=== PATIENT | male | born 1940 | race Caucasian/White ===

== ENCOUNTER 2016-05-16 19:18 | Inpatient (IN) | payer MEDICARE, BC ==
[~2016-05-16] VITALS: Ht 170.2 cm; Wt 113.1 kg
[2016-05-16] MEDS ORDERED: LIDOCAINE 1%-EPI 1:100K, 50ML ONE (20:28)
[2016-05-16] MEDS ORDERED: LIDOCAINE 1%-EPI 1:100K, 50ML INFIL ONE (20:30)
[2016-05-16 20:48] LABS: BLOOD UREA NITROGEN 22 mg/dL (7-18)
[2016-05-16] MEDS ORDERED: LIDOCAINE GEL 2%, 5ML ONE (21:09)
[2016-05-16] MEDS ORDERED: AZITHROMYCIN 500 MG in SODIUM CHLORIDE 0.9% 250 ML IV ONE (22:00)
[2016-05-16] MEDS ORDERED: SODIUM CHLORIDE 0.9% 1,000ML IVBOLUS ONE (22:00)
[2016-05-16] MEDS ORDERED: SODIUM CHLORIDE FLUSH 10ML SYR IVF ONE (22:00)
[2016-05-16] MEDS ORDERED: CEFTRIAXONE PMX 1GM/50ML 50 ML IV ONE (22:00)
[2016-05-16] MEDS ORDERED: DIPH,PERTUSS(ACELL),TET VAC/PF 0.5 ML IM-VACC ONE ×2 (22:09→22:30)
[2016-05-16] MEDS ORDERED: CEFTRIAXONE PMX 1GM/50ML 50 ML ONE (22:09)
[2016-05-16 23:30] VITALS: BP 156/92
[2016-05-17] MEDS ORDERED: SODIUM CHLORIDE 0.9% 1,000 ML IV SCH (01:07)
[2016-05-17] MEDS ORDERED: GLUCAGON 1 MG IM PRN (01:30)
[2016-05-17] MEDS ORDERED: LABETALOL 5MG/ML, 20ML IV PRN (01:30)
[2016-05-17] MEDS ORDERED: POLYETHYLENE GLYCOL 17 GM PACKET PO PRN (01:30)
[2016-05-17] MEDS ORDERED: ENOXAPARIN 40 MG/0.4 ML SQ SCH (01:30)
[2016-05-17] MEDS ORDERED: BISACODYL 10 MG SUPP PR PRN (01:30)
[2016-05-17] MEDS ORDERED: DEXTROSE 4 GM TAB.CHEW PO PRN (01:30)
[2016-05-17] MEDS ORDERED: PHARMACY MAY ADJ FOR RENAL FX MC PRN (01:30)
[2016-05-17] MEDS ORDERED: DEXTROSE 50%, 50ML SYRINGE IVPush PRN (01:30)
[2016-05-17] MEDS ORDERED: ENOXAPARIN 30 MG/0.3 ML SQ SCH (01:30)
[2016-05-17] MEDS ORDERED: DOCUSATE 100 MG CAPSULE PO PRN (01:30)
[2016-05-17] MEDS: DOXYCYCLINE 100 MG in DEXTROSE 5% 250 ML IV SCH ×2 (01:38→13:59)
[2016-05-17] MEDS: MORPHINE SULFATE 4 MG/ML, 1ML IVPush PRN ×3 (01:39→14:51)
[2016-05-17] MEDS: INSULIN DETEMIR 100 UNITS/ML, PEN SQ-INSULIN SCH ×2 (02:23→14:04)
[2016-05-17] MEDS ORDERED: DIPH,PERTUSS(ACELL),TET VAC/PF 0.5 ML IM-VACC ONE (02:30)
[2016-05-17 04:28] VITALS: BP 164/77
[2016-05-17 05:08] LABS: BLOOD UREA NITROGEN 23 mg/dL (7-18)
[2016-05-17 05:14] LABS: ASPARTATE AMINO TRANSFERASE 36 U/L (15-37)
[2016-05-17 05:34] VITALS: BP 155/96
[2016-05-17] MEDS: HYDROcodone/APAP 5/325 TABLET PO PRN ×3 (06:05→20:10)
[2016-05-17 07:59] VITALS: BP 149/90
[2016-05-17] MEDS: ALBUTEROL/IPRATROPIUM 2.5MG/0.5MG, 3 ML NPPB SCH ×2 (08:30→18:35)
[2016-05-17] MEDS: INSULIN ASPART 100 UNITS/ML, PEN SQ-INSULIN SCH ×4 (08:57→20:13)
[2016-05-17] MEDS: SENNA/DOCUSATE TABLET PO SCH (09:37)
[2016-05-17] MEDS: FLUTICASONE/VILANTEROL 100-25MCG/INH INH SCH (09:37)
[2016-05-17] MEDS: SODIUM CHLORIDE FLUSH 10ML SYR IVF SCH ×2 (09:38→20:04)
[2016-05-17 12:36] VITALS: BP 147/88
[2016-05-17] MEDS: ENOXAPARIN 30 MG/0.3 ML SQ SCH (14:11)
[2016-05-17 19:53] VITALS: BP 150/81
[2016-05-17] MEDS: CEFTRIAXONE PMX 1GM/50ML 50 ML IV SCH (20:04)
[2016-05-18] MEDS: ENOXAPARIN 30 MG/0.3 ML SQ SCH ×2 (00:15→13:35)
[2016-05-18] MEDS: HYDROcodone/APAP 5/325 TABLET PO PRN (01:02)
[2016-05-18] MEDS: ONDANSETRON 2MG/ML, 2ML IVP PRN ×2 (01:19→12:00)
[2016-05-18 02:53] VITALS: BP 143/78
[2016-05-18 04:49] LABS: BLOOD UREA NITROGEN 24 mg/dL (7-18)
[2016-05-18] MEDS: MORPHINE SULFATE 4 MG/ML, 1ML IVPush PRN (05:06)
[2016-05-18] MEDS: ALBUTEROL/IPRATROPIUM 2.5MG/0.5MG, 3 ML NPPB SCH ×2 (07:20→19:40)
[2016-05-18] MEDS: FLUTICASONE/VILANTEROL 100-25MCG/INH INH SCH (07:38)
[2016-05-18] MEDS: SENNA/DOCUSATE TABLET PO SCH (07:38)
[2016-05-18] MEDS: INSULIN ASPART 100 UNITS/ML, PEN SQ-INSULIN SCH ×4 (07:42→22:24)
[2016-05-18] MEDS: SODIUM CHLORIDE FLUSH 10ML SYR IVF SCH ×2 (09:00→22:27)
[2016-05-18] MEDS: DOXYCYCLINE 100 MG in DEXTROSE 5% 250 ML IV SCH (12:08)
[2016-05-18] MEDS: INSULIN DETEMIR 100 UNITS/ML, PEN SQ-INSULIN SCH ×2 (12:16→22:25)
[2016-05-18 14:00] VITALS: BP 159/92
[2016-05-18] MEDS ORDERED: RIVAROXABAN 15 MG TABLET PO SCH (17:00)
[2016-05-18 19:10] VITALS: BP 151/82
[2016-05-18] MEDS: CEFTRIAXONE PMX 1GM/50ML 50 ML IV SCH (22:24)
[2016-05-19] MEDS: DOXYCYCLINE 100 MG in DEXTROSE 5% 250 ML IV SCH ×3 (00:08→23:36)
[2016-05-19] MEDS ORDERED: ZIPRASIDONE 20 MG INJ IM ONE ×2 (01:00→20:00)
[2016-05-19 01:35] VITALS: BP 143/76
[2016-05-19 04:48] LABS: BLOOD UREA NITROGEN 21 mg/dL (7-18)
[2016-05-19] MEDS: ALBUTEROL/IPRATROPIUM 2.5MG/0.5MG, 3 ML NPPB SCH ×2 (06:50→18:59)
[2016-05-19 07:15] VITALS: BP 154/73
[2016-05-19] MEDS: FLUTICASONE/VILANTEROL 100-25MCG/INH INH SCH (09:00)
[2016-05-19] MEDS: INSULIN ASPART 100 UNITS/ML, PEN SQ-INSULIN SCH ×4 (09:11→21:13)
[2016-05-19] MEDS: SENNA/DOCUSATE TABLET PO SCH (09:11)
[2016-05-19] MEDS: RIVAROXABAN 15 MG TABLET PO SCH ×2 (09:11→17:00)
[2016-05-19] MEDS: SODIUM CHLORIDE FLUSH 10ML SYR IVF SCH ×2 (09:16→21:12)
[2016-05-19] MEDS: INSULIN DETEMIR 100 UNITS/ML, PEN SQ-INSULIN SCH ×2 (13:11→23:30)
[2016-05-19 13:40] VITALS: BP 158/94
[2016-05-19] MEDS: ACETAMINOPHEN 325 MG TABLET PO PRN (21:12)
[2016-05-19] MEDS: CEFTRIAXONE PMX 1GM/50ML 50 ML IV SCH (21:12)
[2016-05-19 21:15] VITALS: BP 169/97
[2016-05-20 01:47] VITALS: BP 169/87
[2016-05-20] MEDS ORDERED: ZIPRASIDONE 20 MG INJ IM ONE (03:30)
[2016-05-20 07:01] LABS: ASPARTATE AMINO TRANSFERASE 31 U/L (15-37); BLOOD UREA NITROGEN 21 mg/dL (7-18)
[2016-05-20] MEDS: INSULIN ASPART 100 UNITS/ML, PEN SQ-INSULIN SCH ×4 (09:09→20:46)
[2016-05-20] MEDS: SENNA/DOCUSATE TABLET PO SCH (09:10)
[2016-05-20] MEDS: FLUTICASONE/VILANTEROL 100-25MCG/INH INH SCH (09:10)
[2016-05-20] MEDS: SODIUM CHLORIDE FLUSH 10ML SYR IVF SCH ×2 (09:10→20:46)
[2016-05-20] MEDS: RIVAROXABAN 15 MG TABLET PO SCH ×2 (09:10→16:14)
[2016-05-20 09:20] VITALS: BP 150/77
[2016-05-20] MEDS: ALBUTEROL/IPRATROPIUM 2.5MG/0.5MG, 3 ML NPPB SCH ×2 (11:26→19:16)
[2016-05-20] MEDS: DOXYCYCLINE 100 MG in DEXTROSE 5% 250 ML IV SCH ×2 (11:30→22:44)
[2016-05-20] MEDS: INSULIN DETEMIR 100 UNITS/ML, PEN SQ-INSULIN SCH ×2 (11:31→22:46)
[2016-05-20 12:58] VITALS: BP 159/102
[2016-05-20] MEDS ORDERED: OMNIPAQUE 350 MG/ML, 100ML BOTTLE ONE (13:56)
[2016-05-20] MEDS: POTASSIUM CHLORIDE 20 MEQ TAB.ER.PRT PO SCH (17:14)
[2016-05-20] MEDS: FUROSEMIDE 40 MG/4 ML IV SCH (17:14)
[2016-05-20 19:07] VITALS: BP 151/94
[2016-05-20] MEDS: CEFTRIAXONE PMX 1GM/50ML 50 ML IV SCH (20:45)
[2016-05-20] MEDS: ACETAMINOPHEN 325 MG TABLET PO PRN (20:45)
[2016-05-20] MEDS ORDERED: DIPHENHYDRAMINE 50 MG CAPSULE PO ONE (22:00)
[2016-05-21 01:17] VITALS: BP 138/78
[2016-05-21] MEDS: ZIPRASIDONE 20 MG INJ IM PRN ×2 (01:59→12:11)
[2016-05-21 06:50] VITALS: BP 158/95
[2016-05-21] MEDS: POTASSIUM CHLORIDE 20 MEQ TAB.ER.PRT PO SCH (07:31)
[2016-05-21] MEDS: SENNA/DOCUSATE TABLET PO SCH (07:31)
[2016-05-21] MEDS: INSULIN ASPART 100 UNITS/ML, PEN SQ-INSULIN SCH ×4 (07:31→21:24)
[2016-05-21] MEDS: RIVAROXABAN 15 MG TABLET PO SCH ×2 (07:31→16:25)
[2016-05-21] MEDS: FUROSEMIDE 40 MG/4 ML IV SCH (07:32)
[2016-05-21] MEDS: FLUTICASONE/VILANTEROL 100-25MCG/INH INH SCH (07:32)
[2016-05-21] MEDS: SODIUM CHLORIDE FLUSH 10ML SYR IVF SCH ×2 (07:32→21:24)
[2016-05-21] MEDS: ALBUTEROL/IPRATROPIUM 2.5MG/0.5MG, 3 ML NPPB SCH ×2 (09:18→22:17)
[2016-05-21] MEDS: DOXYCYCLINE 100 MG in DEXTROSE 5% 250 ML IV SCH ×2 (11:33→23:59)
[2016-05-21] MEDS: INSULIN DETEMIR 100 UNITS/ML, PEN SQ-INSULIN SCH (11:37)
[2016-05-21 14:15] VITALS: BP 134/80
[2016-05-21 17:42] VITALS: BP 100/61
[2016-05-21 18:43] VITALS: BP 150/86
[2016-05-21] MEDS: CEFTRIAXONE PMX 1GM/50ML 50 ML IV SCH (21:24)
[2016-05-22 03:30] VITALS: BP 130/92
[2016-05-22 04:44] LABS: BLOOD UREA NITROGEN 24 mg/dL (7-18)
[2016-05-22 06:54] VITALS: BP 162/101
[2016-05-22] MEDS ORDERED: SODIUM CHLORIDE 0.9% 1,000 ML IV SCH (07:00)
[2016-05-22] MEDS: POTASSIUM CHLORIDE 20 MEQ TAB.ER.PRT PO SCH (08:19)
[2016-05-22] MEDS: SENNA/DOCUSATE TABLET PO SCH (08:19)
[2016-05-22] MEDS: FUROSEMIDE 40 MG/4 ML IV SCH (08:19)
[2016-05-22] MEDS: FLUTICASONE/VILANTEROL 100-25MCG/INH INH SCH (08:19)
[2016-05-22] MEDS: RIVAROXABAN 15 MG TABLET PO SCH ×2 (08:19→17:00)
[2016-05-22] MEDS: INSULIN ASPART 100 UNITS/ML, PEN SQ-INSULIN SCH ×4 (08:22→22:14)
[2016-05-22] MEDS: SODIUM CHLORIDE FLUSH 10ML SYR IVF SCH ×2 (08:27→22:14)
[2016-05-22] MEDS: ALBUTEROL/IPRATROPIUM 2.5MG/0.5MG, 3 ML NPPB SCH ×2 (09:40→21:48)
[2016-05-22 10:14] VITALS: BP 159/97
[2016-05-22] MEDS: INSULIN DETEMIR 100 UNITS/ML, PEN SQ-INSULIN SCH ×2 (11:28)
[2016-05-22] MEDS: DOXYCYCLINE 100 MG in DEXTROSE 5% 250 ML IV SCH (12:26)
[2016-05-22 12:37] VITALS: BP 122/78
[2016-05-22] MEDS: ZIPRASIDONE 20 MG INJ IM PRN (16:12)
[2016-05-22] MEDS: CEFTRIAXONE PMX 1GM/50ML 50 ML IV SCH (22:14)
[2016-05-23] MEDS: CEFTRIAXONE PMX 1GM/50ML 50 ML IV SCH ×2 (00:30→22:15)
[2016-05-23] MEDS: INSULIN DETEMIR 100 UNITS/ML, PEN SQ-INSULIN SCH ×3 (00:31→23:30)
[2016-05-23] MEDS: DOXYCYCLINE 100 MG in DEXTROSE 5% 250 ML IV SCH ×4 (01:04→23:35)
[2016-05-23 02:29] VITALS: BP 137/95
[2016-05-23 04:35] LABS: BLOOD UREA NITROGEN 27 mg/dL (7-18)
[2016-05-23] MEDS ORDERED: SODIUM CHLORIDE 0.9% 1,000 ML IV SCH (07:00)
[2016-05-23 07:11] VITALS: BP 138/82
[2016-05-23] MEDS: INSULIN ASPART 100 UNITS/ML, PEN SQ-INSULIN SCH ×4 (08:32→22:15)
[2016-05-23] MEDS: SENNA/DOCUSATE TABLET PO SCH (08:35)
[2016-05-23] MEDS: FLUTICASONE/VILANTEROL 100-25MCG/INH INH SCH (08:35)
[2016-05-23] MEDS: RIVAROXABAN 15 MG TABLET PO SCH ×2 (08:35→17:00)
[2016-05-23] MEDS: POTASSIUM CHLORIDE 20 MEQ TAB.ER.PRT PO SCH (08:35)
[2016-05-23] MEDS: SODIUM CHLORIDE FLUSH 10ML SYR IVF SCH ×2 (08:36→22:16)
[2016-05-23] MEDS: ALBUTEROL/IPRATROPIUM 2.5MG/0.5MG, 3 ML NPPB SCH ×2 (09:19→23:00)
[2016-05-23] MEDS ORDERED: FUROSEMIDE 40 MG/4 ML IV SCH (12:30)
[2016-05-23 13:01] VITALS: BP 164/91
[2016-05-24 02:09] VITALS: BP 140/79
[2016-05-24] MEDS: ZIPRASIDONE 20 MG INJ IM PRN ×2 (02:26→22:32)
[2016-05-24 04:52] LABS: BLOOD UREA NITROGEN 29 mg/dL (7-18)
[2016-05-24 07:34] VITALS: BP_SYST 160; BP_SYST 184; BP_DIAS 100; BP_DIAS 77
[2016-05-24] MEDS: FUROSEMIDE 40 MG TABLET PO SCH ×2 (08:37→16:13)
[2016-05-24] MEDS: DOXYCYCLINE 100MG TABLET PO SCH ×2 (08:37→22:32)
[2016-05-24] MEDS: RIVAROXABAN 15 MG TABLET PO SCH ×2 (08:38→16:13)
[2016-05-24] MEDS: MAGNESIUM OXIDE 400 MG TABLET PO SCH (08:38)
[2016-05-24] MEDS: SENNA/DOCUSATE TABLET PO SCH (08:38)
[2016-05-24] MEDS: POTASSIUM CHLORIDE 20 MEQ TAB.ER.PRT PO SCH (08:38)
[2016-05-24] MEDS: INSULIN ASPART 100 UNITS/ML, PEN SQ-INSULIN SCH ×4 (08:39→22:33)
[2016-05-24] MEDS: SODIUM CHLORIDE FLUSH 10ML SYR IVF SCH ×2 (08:39→21:00)
[2016-05-24] MEDS: FLUTICASONE/VILANTEROL 100-25MCG/INH INH SCH (08:39)
[2016-05-24] MEDS: ALBUTEROL/IPRATROPIUM 2.5MG/0.5MG, 3 ML NPPB SCH ×2 (09:00→21:31)
[2016-05-24] MEDS: INSULIN DETEMIR 100 UNITS/ML, PEN SQ-INSULIN SCH ×2 (12:37→22:33)
[2016-05-24 13:33] VITALS: BP 142/83
[2016-05-24] MEDS: ACETAMINOPHEN 325 MG TABLET PO PRN (16:12)
[2016-05-24 20:10] VITALS: BP 161/95
[2016-05-25 02:18] VITALS: BP 152/90
[2016-05-25 06:08] LABS: BLOOD UREA NITROGEN 27 mg/dL (7-18)
[2016-05-25 06:59] VITALS: BP 150/78
[2016-05-25] MEDS: DOXYCYCLINE 100MG TABLET PO SCH ×2 (08:32→22:09)
[2016-05-25] MEDS: SENNA/DOCUSATE TABLET PO SCH (08:33)
[2016-05-25] MEDS: SODIUM CHLORIDE FLUSH 10ML SYR IVF SCH ×2 (08:33→21:00)
[2016-05-25] MEDS: POTASSIUM CHLORIDE 20 MEQ TAB.ER.PRT PO SCH (08:33)
[2016-05-25] MEDS: FUROSEMIDE 40 MG TABLET PO SCH ×2 (08:33→17:33)
[2016-05-25] MEDS: RIVAROXABAN 15 MG TABLET PO SCH ×2 (08:33→17:33)
[2016-05-25] MEDS: MAGNESIUM OXIDE 400 MG TABLET PO SCH (08:33)
[2016-05-25] MEDS: FLUTICASONE/VILANTEROL 100-25MCG/INH INH SCH (08:34)
[2016-05-25] MEDS: INSULIN ASPART 100 UNITS/ML, PEN SQ-INSULIN SCH ×4 (08:43→22:10)
[2016-05-25] MEDS: ALBUTEROL/IPRATROPIUM 2.5MG/0.5MG, 3 ML NPPB SCH ×2 (09:00→20:35)
[2016-05-25] MEDS: ZIPRASIDONE 20 MG INJ IM PRN (10:41)
[2016-05-25] MEDS: INSULIN DETEMIR 100 UNITS/ML, PEN SQ-INSULIN SCH ×2 (11:45→23:26)
[2016-05-25 12:32] VITALS: BP 123/74
[2016-05-25] MEDS: ACETAMINOPHEN 325 MG TABLET PO PRN (13:24)
[2016-05-25 20:00] VITALS: BP 128/75
[2016-05-26] VITALS (8 sets, daily range): BP systolic 112–159; BP diastolic 73–89
[2016-05-26] MEDS: ZIPRASIDONE 20 MG INJ IM PRN ×2 (05:15→19:20)
[2016-05-26] MEDS: INSULIN ASPART 100 UNITS/ML, PEN SQ-INSULIN SCH ×4 (08:05→21:06)
[2016-05-26] MEDS: MAGNESIUM OXIDE 400 MG TABLET PO SCH (08:09)
[2016-05-26] MEDS: SENNA/DOCUSATE TABLET PO SCH (08:09)
[2016-05-26] MEDS: FUROSEMIDE 40 MG TABLET PO SCH ×2 (08:09→16:39)
[2016-05-26] MEDS: RIVAROXABAN 15 MG TABLET PO SCH ×2 (08:09→16:40)
[2016-05-26] MEDS: FLUTICASONE/VILANTEROL 100-25MCG/INH INH SCH (08:09)
[2016-05-26] MEDS: POTASSIUM CHLORIDE 20 MEQ TAB.ER.PRT PO SCH (08:09)
[2016-05-26] MEDS: DOXYCYCLINE 100MG TABLET PO SCH ×3 (08:09→21:06)
[2016-05-26] MEDS: SODIUM CHLORIDE FLUSH 10ML SYR IVF SCH ×2 (08:10→21:00)
[2016-05-26] MEDS: ALBUTEROL/IPRATROPIUM 2.5MG/0.5MG, 3 ML NPPB SCH ×2 (09:25→20:25)
[2016-05-26] MEDS: INSULIN DETEMIR 100 UNITS/ML, PEN SQ-INSULIN SCH ×2 (12:57→21:07)
[2016-05-27 02:20] VITALS: BP 115/63
[2016-05-27] MEDS: ZIPRASIDONE 20 MG INJ IM PRN (03:23)
[2016-05-27 05:00] LABS: BLOOD UREA NITROGEN 31 mg/dL (7-18)
[2016-05-27 06:45] VITALS: BP 143/93
[2016-05-27] MEDS: ALBUTEROL/IPRATROPIUM 2.5MG/0.5MG, 3 ML NPPB SCH ×2 (09:53→20:51)
[2016-05-27] MEDS: INSULIN DETEMIR 100 UNITS/ML, PEN SQ-INSULIN SCH ×2 (10:15→20:59)
[2016-05-27] MEDS: INSULIN ASPART 100 UNITS/ML, PEN SQ-INSULIN SCH ×4 (10:15→20:59)
[2016-05-27] MEDS: FLUTICASONE/VILANTEROL 100-25MCG/INH INH SCH (10:16)
[2016-05-27] MEDS: FUROSEMIDE 40 MG TABLET PO SCH ×2 (10:16→16:05)
[2016-05-27] MEDS: POTASSIUM CHLORIDE 20 MEQ TAB.ER.PRT PO SCH (10:16)
[2016-05-27] MEDS: RIVAROXABAN 15 MG TABLET PO SCH ×2 (10:16→16:05)
[2016-05-27] MEDS: MAGNESIUM OXIDE 400 MG TABLET PO SCH (10:16)
[2016-05-27] MEDS: SENNA/DOCUSATE TABLET PO SCH (10:17)
[2016-05-27] MEDS: SODIUM CHLORIDE FLUSH 10ML SYR IVF SCH ×2 (10:17→20:58)
[2016-05-27] MEDS: ACETAMINOPHEN 325 MG TABLET PO PRN (12:45)
[2016-05-27 13:29] VITALS: BP 125/65
[2016-05-27] MEDS: DIVALPROEX 500 MG TAB.ER.24H PO SCH ×2 (17:05→20:59)
[2016-05-27 19:22] VITALS: BP 134/72
[2016-05-28 02:00] VITALS: BP 109/68
[2016-05-28] MEDS: ACETAMINOPHEN 325 MG TABLET PO PRN ×2 (02:20→11:15)
[2016-05-28 06:24] VITALS: BP 119/79
[2016-05-28] MEDS: INSULIN ASPART 100 UNITS/ML, PEN SQ-INSULIN SCH ×4 (07:21→21:47)
[2016-05-28] MEDS: INSULIN DETEMIR 100 UNITS/ML, PEN SQ-INSULIN SCH ×3 (07:21→21:47)
[2016-05-28] MEDS: SENNA/DOCUSATE TABLET PO SCH (07:22)
[2016-05-28] MEDS: MAGNESIUM OXIDE 400 MG TABLET PO SCH (07:22)
[2016-05-28] MEDS: POTASSIUM CHLORIDE 20 MEQ TAB.ER.PRT PO SCH (07:23)
[2016-05-28] MEDS: DIVALPROEX 500 MG TAB.ER.24H PO SCH ×2 (07:23→21:46)
[2016-05-28] MEDS: FUROSEMIDE 40 MG TABLET PO SCH ×2 (07:23→16:12)
[2016-05-28] MEDS: SODIUM CHLORIDE FLUSH 10ML SYR IVF SCH ×2 (07:23→21:00)
[2016-05-28] MEDS: RIVAROXABAN 15 MG TABLET PO SCH ×2 (07:23→16:12)
[2016-05-28] MEDS: FLUTICASONE/VILANTEROL 100-25MCG/INH INH SCH (07:23)
[2016-05-28 12:50] VITALS: BP 107/67
[2016-05-28] MEDS: QUETIAPINE 25MG TABLET PO SCH ×2 (16:12→21:46)
[2016-05-28] MEDS: ZIPRASIDONE 20 MG INJ IM PRN (18:10)
[2016-05-28 19:46] VITALS: BP 134/62
[2016-05-28] MEDS: ALBUTEROL/IPRATROPIUM 2.5MG/0.5MG, 3 ML NPPB SCH (20:12)
[2016-05-29 01:17] VITALS: BP 152/88
[2016-05-29 07:09] VITALS: BP 120/78
[2016-05-29] MEDS: MAGNESIUM OXIDE 400 MG TABLET PO SCH (08:22)
[2016-05-29] MEDS: INSULIN ASPART 100 UNITS/ML, PEN SQ-INSULIN SCH ×4 (08:22→21:54)
[2016-05-29] MEDS: SENNA/DOCUSATE TABLET PO SCH (08:22)
[2016-05-29] MEDS: INSULIN DETEMIR 100 UNITS/ML, PEN SQ-INSULIN SCH ×2 (08:22→21:54)
[2016-05-29] MEDS: DIVALPROEX 500 MG TAB.ER.24H PO SCH ×2 (08:22→21:42)
[2016-05-29] MEDS: FLUTICASONE/VILANTEROL 100-25MCG/INH INH SCH (08:23)
[2016-05-29] MEDS: RIVAROXABAN 15 MG TABLET PO SCH ×2 (08:23→15:56)
[2016-05-29] MEDS: FUROSEMIDE 40 MG TABLET PO SCH ×2 (08:23→15:56)
[2016-05-29] MEDS: POTASSIUM CHLORIDE 20 MEQ TAB.ER.PRT PO SCH (08:23)
[2016-05-29] MEDS: QUETIAPINE 25MG TABLET PO SCH ×3 (08:23→21:42)
[2016-05-29] MEDS: SODIUM CHLORIDE FLUSH 10ML SYR IVF SCH ×2 (08:23→21:00)
[2016-05-29] MEDS: ALBUTEROL/IPRATROPIUM 2.5MG/0.5MG, 3 ML NPPB SCH (09:00)
[2016-05-29 13:28] VITALS: BP 135/81
[2016-05-29] MEDS: ACETAMINOPHEN 325 MG TABLET PO PRN (13:42)
[2016-05-29 20:12] VITALS: BP 128/74
[2016-05-30 01:51] VITALS: BP 108/72
[2016-05-30 06:51] VITALS: BP 102/66
[2016-05-30] MEDS ORDERED: ALBUTEROL/IPRATROPIUM 2.5MG/0.5MG, 3 ML NPPB PRN (07:00)
[2016-05-30] MEDS: INSULIN DETEMIR 100 UNITS/ML, PEN SQ-INSULIN SCH ×2 (08:05→22:17)
[2016-05-30] MEDS: INSULIN ASPART 100 UNITS/ML, PEN SQ-INSULIN SCH ×4 (08:05→22:16)
[2016-05-30] MEDS: FLUTICASONE/VILANTEROL 100-25MCG/INH INH SCH (08:05)
[2016-05-30] MEDS: POTASSIUM CHLORIDE 20 MEQ TAB.ER.PRT PO SCH (08:06)
[2016-05-30] MEDS: FUROSEMIDE 40 MG TABLET PO SCH ×2 (08:06→18:34)
[2016-05-30] MEDS: QUETIAPINE 25MG TABLET PO SCH ×3 (08:06→23:14)
[2016-05-30] MEDS: MAGNESIUM OXIDE 400 MG TABLET PO SCH (08:06)
[2016-05-30] MEDS: SENNA/DOCUSATE TABLET PO SCH (08:06)
[2016-05-30] MEDS: RIVAROXABAN 15 MG TABLET PO SCH ×2 (08:06→22:16)
[2016-05-30] MEDS: DIVALPROEX 500 MG TAB.ER.24H PO SCH ×2 (08:06→22:16)
[2016-05-30] MEDS: SODIUM CHLORIDE FLUSH 10ML SYR IVF SCH ×2 (08:25→21:00)
[2016-05-30 09:15] VITALS: BP 105/61
[2016-05-30 14:32] VITALS: BP 142/79
[2016-05-30 20:13] VITALS: BP 97/68
[2016-05-30 22:02] VITALS: BP 135/77
[2016-05-31 01:52] VITALS: BP 132/69
[2016-05-31 06:15] LABS: BLOOD UREA NITROGEN 43 mg/dL (7-18)
[2016-05-31 07:23] VITALS: BP 126/79
[2016-05-31] MEDS: MAGNESIUM OXIDE 400 MG TABLET PO SCH (08:24)
[2016-05-31] MEDS: FUROSEMIDE 40 MG TABLET PO SCH ×2 (08:24→16:51)
[2016-05-31] MEDS: SENNA/DOCUSATE TABLET PO SCH (08:24)
[2016-05-31] MEDS: FLUTICASONE/VILANTEROL 100-25MCG/INH INH SCH (08:24)
[2016-05-31] MEDS: DIVALPROEX 500 MG TAB.ER.24H PO SCH ×2 (08:24→21:48)
[2016-05-31] MEDS: QUETIAPINE 25MG TABLET PO SCH ×2 (08:24→21:48)
[2016-05-31] MEDS: RIVAROXABAN 15 MG TABLET PO SCH ×2 (08:24→16:51)
[2016-05-31] MEDS: POTASSIUM CHLORIDE 20 MEQ TAB.ER.PRT PO SCH (08:24)
[2016-05-31] MEDS: INSULIN ASPART 100 UNITS/ML, PEN SQ-INSULIN SCH ×4 (08:25→22:26)
[2016-05-31] MEDS: INSULIN DETEMIR 100 UNITS/ML, PEN SQ-INSULIN SCH ×2 (08:26→22:25)
[2016-05-31] MEDS: SODIUM CHLORIDE FLUSH 10ML SYR IVF SCH ×2 (09:00→21:00)
[2016-05-31] MEDS: ACETAMINOPHEN 325 MG TABLET PO PRN (12:21)
[2016-05-31 13:23] VITALS: BP 118/72
[2016-05-31 19:30] VITALS: BP 125/79
[2016-06-01 01:50] VITALS: BP 119/80
[2016-06-01] MEDS: ACETAMINOPHEN 325 MG TABLET PO PRN ×2 (06:11→16:31)
[2016-06-01 07:31] VITALS: BP 134/91
[2016-06-01] MEDS: POTASSIUM CHLORIDE 20 MEQ TAB.ER.PRT PO SCH (08:14)
[2016-06-01] MEDS: SENNA/DOCUSATE TABLET PO SCH (08:14)
[2016-06-01] MEDS: FUROSEMIDE 40 MG TABLET PO SCH ×2 (08:14→16:30)
[2016-06-01] MEDS: FLUTICASONE/VILANTEROL 100-25MCG/INH INH SCH (08:14)
[2016-06-01] MEDS: DIVALPROEX 500 MG TAB.ER.24H PO SCH ×2 (08:14→20:30)
[2016-06-01] MEDS: RIVAROXABAN 15 MG TABLET PO SCH (08:14)
[2016-06-01] MEDS: INSULIN ASPART 100 UNITS/ML, PEN SQ-INSULIN SCH ×4 (08:15→20:41)
[2016-06-01] MEDS: INSULIN DETEMIR 100 UNITS/ML, PEN SQ-INSULIN SCH ×2 (08:15→20:41)
[2016-06-01] MEDS: QUETIAPINE 25MG TABLET PO SCH ×2 (08:16→21:00)
[2016-06-01] MEDS: SODIUM CHLORIDE FLUSH 10ML SYR IVF SCH ×2 (08:19→20:41)
[2016-06-01 12:57] VITALS: BP 109/74
[2016-06-01] MEDS: MAGNESIUM OXIDE 400 MG TABLET PO SCH (16:29)
[2016-06-01 18:50] VITALS: BP 117/61
[2016-06-01] MEDS ORDERED: QUETIAPINE 25MG TABLET PO SCH (21:00)
[2016-06-02 02:44] VITALS: BP 128/67
[2016-06-02 05:24] LABS: BLOOD UREA NITROGEN 43 mg/dL (7-18)
[2016-06-02] MEDS: ACETAMINOPHEN 325 MG TABLET PO PRN ×2 (05:55→21:10)
[2016-06-02] MEDS: QUETIAPINE 25MG TABLET PO SCH ×3 (05:55→21:12)
[2016-06-02] MEDS: FUROSEMIDE 40 MG TABLET PO SCH ×2 (07:38→16:50)
[2016-06-02] MEDS: SODIUM CHLORIDE FLUSH 10ML SYR IVF SCH ×3 (07:38→21:00)
[2016-06-02] MEDS: FLUTICASONE/VILANTEROL 100-25MCG/INH INH SCH (07:38)
[2016-06-02] MEDS: INSULIN ASPART 100 UNITS/ML, PEN SQ-INSULIN SCH ×4 (07:38→21:27)
[2016-06-02] MEDS: POTASSIUM CHLORIDE 20 MEQ TAB.ER.PRT PO SCH (07:39)
[2016-06-02] MEDS: DIVALPROEX 500 MG TAB.ER.24H PO SCH ×3 (07:39→21:10)
[2016-06-02] MEDS: MAGNESIUM OXIDE 400 MG TABLET PO SCH (07:39)
[2016-06-02] MEDS: INSULIN DETEMIR 100 UNITS/ML, PEN SQ-INSULIN SCH ×2 (07:40→21:27)
[2016-06-02] MEDS: SENNA/DOCUSATE TABLET PO SCH (07:40)
[2016-06-02 07:43] VITALS: BP 149/74
[2016-06-02] MEDS: RIVAROXABAN 15 MG TABLET PO SCH (09:04)
[2016-06-02 14:13] VITALS: BP 103/75
[2016-06-02 20:19] VITALS: BP 148/90
[2016-06-03 01:00] VITALS: BP 139/82
[2016-06-03] MEDS: QUETIAPINE 25MG TABLET PO SCH ×3 (06:43→22:07)
[2016-06-03 07:26] VITALS: BP 133/87
[2016-06-03] MEDS: SODIUM CHLORIDE FLUSH 10ML SYR IVF SCH ×2 (07:49→21:00)
[2016-06-03] MEDS: INSULIN ASPART 100 UNITS/ML, PEN SQ-INSULIN SCH ×4 (07:53→22:08)
[2016-06-03] MEDS: INSULIN DETEMIR 100 UNITS/ML, PEN SQ-INSULIN SCH ×2 (07:53→22:08)
[2016-06-03] MEDS: FLUTICASONE/VILANTEROL 100-25MCG/INH INH SCH (07:53)
[2016-06-03] MEDS: SENNA/DOCUSATE TABLET PO SCH (07:55)
[2016-06-03] MEDS: POTASSIUM CHLORIDE 20 MEQ TAB.ER.PRT PO SCH (07:55)
[2016-06-03] MEDS: MAGNESIUM OXIDE 400 MG TABLET PO SCH (07:55)
[2016-06-03] MEDS: FUROSEMIDE 40 MG TABLET PO SCH ×2 (07:55→16:43)
[2016-06-03] MEDS: DIVALPROEX 500 MG TAB.ER.24H PO SCH ×3 (07:55→22:07)
[2016-06-03] MEDS: RIVAROXABAN 15 MG TABLET PO SCH (07:56)
[2016-06-03 13:43] VITALS: BP 136/84
[2016-06-03] MEDS ORDERED: ONDANSETRON ODT 4 MG PO PRN (15:30)
[2016-06-03] MEDS: ACETAMINOPHEN 325 MG TABLET PO PRN (22:51)
[2016-06-03 23:27] VITALS: BP 138/76
[2016-06-04 04:50] LABS: BLOOD UREA NITROGEN 44 mg/dL (7-18)
[2016-06-04 07:09] VITALS: BP 95/65
[2016-06-04] MEDS: POTASSIUM CHLORIDE 20 MEQ TAB.ER.PRT PO SCH (09:00)
[2016-06-04] MEDS: SODIUM CHLORIDE FLUSH 10ML SYR IVF SCH ×2 (09:00→21:00)
[2016-06-04] MEDS: INSULIN ASPART 100 UNITS/ML, PEN SQ-INSULIN SCH ×4 (09:28→22:51)
[2016-06-04] MEDS: SENNA/DOCUSATE TABLET PO SCH (09:29)
[2016-06-04] MEDS: INSULIN DETEMIR 100 UNITS/ML, PEN SQ-INSULIN SCH ×2 (09:29→22:51)
[2016-06-04] MEDS: RIVAROXABAN 15 MG TABLET PO SCH (09:29)
[2016-06-04] MEDS: MAGNESIUM OXIDE 400 MG TABLET PO SCH (09:30)
[2016-06-04] MEDS: FUROSEMIDE 40 MG TABLET PO SCH ×2 (09:30→16:43)
[2016-06-04] MEDS: QUETIAPINE 25MG TABLET PO SCH ×3 (09:30→22:25)
[2016-06-04] MEDS: DIVALPROEX 500 MG TAB.ER.24H PO SCH ×3 (09:30→22:25)
[2016-06-04] MEDS: FLUTICASONE/VILANTEROL 100-25MCG/INH INH SCH (09:31)
[2016-06-04] MEDS ORDERED: SODIUM POLYSTYRENE SULFONATE ORAL SUSP PO ONE (10:00)
[2016-06-04] MEDS ORDERED: FURO40TA6 PO (10:03)
[2016-06-04] MEDS ORDERED: FLUT1AER INH (10:03)
[2016-06-04] MEDS ORDERED: RIVA15TA PO (10:03)
[2016-06-04] MEDS ORDERED: MAGN400T26 PO (10:03)
[2016-06-04] MEDS ORDERED: INSU100I18 SQ-INSULIN (10:03)
[2016-06-04] MEDS ORDERED: QUET25TA PO ×2 (10:03)
[2016-06-04] MEDS ORDERED: DIVA500T4 PO (10:03)
[2016-06-04] MEDS ORDERED: INSU100I28 SQ-INSULIN (10:03)
[2016-06-04 13:17] VITALS: BP 134/82
[2016-06-04] MEDS: ACETAMINOPHEN 325 MG TABLET PO PRN (16:44)
[2016-06-04 19:59] VITALS: BP 173/74
[2016-06-05] MEDS: ACETAMINOPHEN 325 MG TABLET PO PRN (00:47)
[2016-06-05 02:57] VITALS: BP 114/76
[2016-06-05] MEDS: QUETIAPINE 25MG TABLET PO SCH ×2 (05:47→14:37)
[2016-06-05 07:40] VITALS: BP 154/53
[2016-06-05] MEDS: ZIPRASIDONE 20 MG INJ IM PRN (09:16)
[2016-06-05] MEDS: FLUTICASONE/VILANTEROL 100-25MCG/INH INH SCH (09:17)
[2016-06-05] MEDS: SODIUM CHLORIDE FLUSH 10ML SYR IVF SCH (09:18)
[2016-06-05] MEDS: FUROSEMIDE 40 MG TABLET PO SCH (09:19)
[2016-06-05] MEDS: DIVALPROEX 500 MG TAB.ER.24H PO SCH ×2 (09:19→15:39)
[2016-06-05] MEDS: RIVAROXABAN 15 MG TABLET PO SCH (09:20)
[2016-06-05] MEDS: MAGNESIUM OXIDE 400 MG TABLET PO SCH (09:21)
[2016-06-05] MEDS: SENNA/DOCUSATE TABLET PO SCH (09:21)
[2016-06-05] MEDS: INSULIN ASPART 100 UNITS/ML, PEN SQ-INSULIN SCH ×2 (09:43→11:55)
[2016-06-05] MEDS: INSULIN DETEMIR 100 UNITS/ML, PEN SQ-INSULIN SCH (11:54)
[2016-06-05] MEDS ORDERED: ZIPR20VI IM (17:05)
[2016-06-09] MEDS ORDERED: RIVAROXABAN 20 MG TABLET PO SCH (08:00)
== END 2016-06-05 17:00 | DRG 682 ==
LOC: ED 22:27 → EDIP 22:30 → 3NW 23:13
PROVIDERS: ADMIT Internal Medicine; ATTEND Internal Medicine
PROC: 0HQGXZZ Repair Left Hand Skin, External Approach (ICD-10-PCS; principal; 2016-05-16)
DX: N17.9 Acute kidney failure, unspecified (principal); J18.9 Pneumonia, unspecified organism; E43 Unspecified severe protein-calorie malnutrition; E87.1 Hypo-osmolality and hyponatremia; I42.9 Cardiomyopathy, unspecified; D68.69 Other thrombophilia; F02.81 Dementia in other diseases classified elsewhere, unspecified severity, with behavioral disturbance; I13.0 Hypertensive heart and chronic kidney disease with heart failure and stage 1 through stage 4 chronic kidney disease, or unspecified chronic kidney disease; J44.0 Chronic obstructive pulmonary disease with (acute) lower respiratory infection; J96.10 Chronic respiratory failure, unspecified whether with hypoxia or hypercapnia; F01.51 Vascular dementia, unspecified severity, with behavioral disturbance; C34.90 Malignant neoplasm of unspecified part of unspecified bronchus or lung; I48.2 Chronic atrial fibrillation; I44.7 Left bundle-branch block, unspecified; D75.89 Other specified diseases of blood and blood-forming organs; E11.22 Type 2 diabetes mellitus with diabetic chronic kidney disease; I48.91 Unspecified atrial fibrillation; I10 Essential (primary) hypertension; R00.0 Tachycardia, unspecified; N18.3 Chronic kidney disease, stage 3 (moderate); R41.0 Disorientation, unspecified; E11.65 Type 2 diabetes mellitus with hyperglycemia; E86.0 Dehydration; E87.5 Hyperkalemia; G30.9 Alzheimer's disease, unspecified; F22 Delusional disorders; F31.9 Bipolar disorder, unspecified; H91.90 Unspecified hearing loss, unspecified ear; I50.9 Heart failure, unspecified; I34.0 Nonrheumatic mitral (valve) insufficiency; K76.9 Liver disease, unspecified; M19.90 Unspecified osteoarthritis, unspecified site; S80.212A Abrasion, left knee, initial encounter; S61.412A Laceration without foreign body of left hand, initial encounter; Z66 Do not resuscitate; W01.0XXA Fall on same level from slipping, tripping and stumbling without subsequent striking against object, initial encounter; Z78.1 Physical restraint status; Z79.01 Long term (current) use of anticoagulants; Z63.8 Other specified problems related to primary support group; Z82.0 Family history of epilepsy and other diseases of the nervous system; Z85.118 Personal history of other malignant neoplasm of bronchus and lung; Z87.891 Personal history of nicotine dependence; Z92.3 Personal history of irradiation; Y92.480 Sidewalk as the place of occurrence of the external cause; Z95.0 Presence of cardiac pacemaker; Z99.81 Dependence on supplemental oxygen; Z68.39 Body mass index [BMI] 39.0-39.9, adult; Z90.49 Acquired absence of other specified parts of digestive tract; Z90.89 Acquired absence of other organs; Y93.89 Activity, other specified; Y92.098 Other place in other non-institutional residence as the place of occurrence of the external cause; Y99.8 Other external cause status; Z88.0 Allergy status to penicillin; Z88.2 Allergy status to sulfonamides; Z88.8 Allergy status to other drugs, medicaments and biological substances; Z83.3 Family history of diabetes mellitus; Z81.8 Family history of other mental and behavioral disorders; I25.2 Old myocardial infarction
CPT/HCPCS: 12002; 36415; 70450; 71010; 71260; 74177; 80048; 80053; 80164; 81001; 82040; 82570; 82607; 82746; 82962; 83735; 84100; 84443; 84540; 85025; 85610; 85730; 87040; 90715; 93005; 93306; 94640; 95819; 96365; J0696; J1650; J1815; J1940; J2405; J3486; J7060; J7620; Q0162; Q9967; 92523-GN; J7030

== ENCOUNTER 2016-06-06 10:19 | Inpatient (IN) | payer MEDICARE, BC ==
[~2016-06-06] VITALS: Ht 180.3 cm; Wt 108.8 kg
[~2016-06-06 10:19] MED LIST: DIVA500T4 PO; FLUT1AER INH; FURO40TA6 PO; INSU100I18 SQ-INSULIN; INSU100I28 SQ-INSULIN; MAGN400T26 PO; QUET25TA PO; RIVA15TA PO; ZIPR20VI IM
[2016-06-06] MEDS ORDERED: ZIPRASIDONE 20 MG INJ IM ONE ×4 (10:52→12:00)
[2016-06-06 11:23] LABS: BLOOD UREA NITROGEN 40 mg/dL (7-18)
[2016-06-06] MEDS ORDERED: LORazepam 2 MG/ML, 1ML IM ONE (12:00)
[2016-06-06 15:22] VITALS: BP 162/105
[2016-06-06] MEDS: INSULIN DETEMIR 100 UNITS/ML, PEN SQ-INSULIN SCH (15:30)
[2016-06-06] MEDS ORDERED: ACETAMINOPHEN 325 MG TABLET PO PRN (15:30)
[2016-06-06] MEDS: DIVALPROEX 500 MG TAB.ER.24H PO SCH ×2 (16:00→22:57)
[2016-06-06] MEDS: INSULIN REGULAR 100 UNITS/ML, 3ML VIAL SQ-INSULIN SCH ×2 (16:00→23:46)
[2016-06-06] MEDS ORDERED: FUROSEMIDE 40 MG TABLET PO SCH (17:00)
[2016-06-06] MEDS ORDERED: ZIPRASIDONE 20 MG INJ IM PRN (18:00)
[2016-06-06 20:01] VITALS: BP 160/95
[2016-06-06] MEDS ORDERED: QUETIAPINE 25MG TABLET PO SCH (21:00)
[2016-06-06] MEDS: QUETIAPINE 25MG TABLET PO SCH (22:58)
[2016-06-07 05:18] LABS: BLOOD UREA NITROGEN 38 mg/dL (7-18)
[2016-06-07 09:00] VITALS: BP 129/75
[2016-06-07] MEDS: INSULIN DETEMIR 100 UNITS/ML, PEN SQ-INSULIN SCH ×2 (09:34→20:10)
[2016-06-07] MEDS: MAGNESIUM OXIDE 400 MG TABLET PO SCH (09:35)
[2016-06-07] MEDS: DIVALPROEX 500 MG TAB.ER.24H PO SCH ×3 (09:35→20:10)
[2016-06-07] MEDS: QUETIAPINE 25MG TABLET PO SCH ×3 (09:35→20:09)
[2016-06-07] MEDS: FUROSEMIDE 40 MG TABLET PO SCH ×2 (09:36→18:31)
[2016-06-07] MEDS: RIVAROXABAN 15 MG TABLET PO SCH (09:36)
[2016-06-07 12:00] VITALS: BP 121/84
[2016-06-07] MEDS: FLUTICASONE/VILANTEROL 100-25MCG/INH INH SCH (12:42)
[2016-06-07] MEDS: INSULIN REGULAR 100 UNITS/ML, 3ML VIAL SQ-INSULIN SCH ×4 (12:54→20:10)
[2016-06-07 20:22] VITALS: BP 152/82
[2016-06-07 20:42] LABS: PATH.CAST-FLAG NOT PRESENT; SPERM-FLAG NOT PRESENT; SRC-FLAG NOT PRESENT; XTAL-FLAG NOT PRESENT; YLC-FLAG NOT PRESENT
[2016-06-08 01:18] VITALS: BP 123/86
[2016-06-08 07:34] VITALS: BP 135/78
[2016-06-08] MEDS: QUETIAPINE 25MG TABLET PO SCH ×4 (08:06→20:37)
[2016-06-08] MEDS: DIVALPROEX 500 MG TAB.ER.24H PO SCH ×3 (08:07→20:31)
[2016-06-08] MEDS: RIVAROXABAN 15 MG TABLET PO SCH (08:07)
[2016-06-08] MEDS: MAGNESIUM OXIDE 400 MG TABLET PO SCH (08:07)
[2016-06-08] MEDS: FUROSEMIDE 40 MG TABLET PO SCH ×2 (08:07→16:35)
[2016-06-08] MEDS: FLUTICASONE/VILANTEROL 100-25MCG/INH INH SCH (08:10)
[2016-06-08] MEDS: INSULIN DETEMIR 100 UNITS/ML, PEN SQ-INSULIN SCH ×2 (08:20→16:37)
[2016-06-08] MEDS: INSULIN REGULAR 100 UNITS/ML, 3ML VIAL SQ-INSULIN SCH ×4 (08:22→20:35)
[2016-06-08 19:49] VITALS: BP 114/73
[2016-06-09 00:55] VITALS: BP 119/76
[2016-06-09] MEDS: INSULIN DETEMIR 100 UNITS/ML, PEN SQ-INSULIN SCH ×2 (03:45→20:17)
[2016-06-09] MEDS: INSULIN REGULAR 100 UNITS/ML, 3ML VIAL SQ-INSULIN SCH ×4 (07:00→20:18)
[2016-06-09] MEDS: RIVAROXABAN 15 MG TABLET PO SCH (07:36)
[2016-06-09] MEDS: DIVALPROEX 500 MG TAB.ER.24H PO SCH ×3 (07:36→20:19)
[2016-06-09] MEDS: QUETIAPINE 25MG TABLET PO SCH ×4 (07:36→20:19)
[2016-06-09] MEDS: FUROSEMIDE 40 MG TABLET PO SCH ×2 (07:36→16:37)
[2016-06-09] MEDS: FLUTICASONE/VILANTEROL 100-25MCG/INH INH SCH (07:37)
[2016-06-09 07:40] VITALS: BP 107/59
[2016-06-09] MEDS: MAGNESIUM OXIDE 400 MG TABLET PO SCH (12:21)
[2016-06-09 12:59] VITALS: BP 117/70
[2016-06-09 20:04] VITALS: BP 121/77
[2016-06-10 05:31] VITALS: BP 116/79
[2016-06-10 07:12] VITALS: BP 93/60
[2016-06-10] MEDS: INSULIN REGULAR 100 UNITS/ML, 3ML VIAL SQ-INSULIN SCH ×2 (07:47→11:28)
[2016-06-10] MEDS: MAGNESIUM OXIDE 400 MG TABLET PO SCH (07:51)
[2016-06-10] MEDS: INSULIN DETEMIR 100 UNITS/ML, PEN SQ-INSULIN SCH (07:51)
[2016-06-10] MEDS: RIVAROXABAN 15 MG TABLET PO SCH (07:51)
[2016-06-10] MEDS: FUROSEMIDE 40 MG TABLET PO SCH (07:52)
[2016-06-10] MEDS: DIVALPROEX 500 MG TAB.ER.24H PO SCH (07:52)
[2016-06-10] MEDS: QUETIAPINE 25MG TABLET PO SCH ×2 (07:52→12:04)
[2016-06-10] MEDS: FLUTICASONE/VILANTEROL 100-25MCG/INH INH SCH (07:56)
[2016-06-10] MEDS ORDERED: chlorPROMAZINE 25 MG/ML, 2ML IM ONE (14:00)
[2016-06-10 14:19] VITALS: BP 123/76
[2016-06-10] MEDS ORDERED: DIVA500T4 PO (15:16)
[2016-06-10] MEDS ORDERED: QUET25TA5 PO ×2 (15:16)
== END 2016-06-10 15:20 | disposition hospice, home (50) | DRG 884 ==
LOC: ED 10:21 → EDIP 13:02 → 3NE 14:54 → 3NW 21:24
PROVIDERS: ADMIT Internal Medicine; ATTEND Internal Medicine
DX: F01.51 Vascular dementia, unspecified severity, with behavioral disturbance (principal); I13.0 Hypertensive heart and chronic kidney disease with heart failure and stage 1 through stage 4 chronic kidney disease, or unspecified chronic kidney disease; J96.10 Chronic respiratory failure, unspecified whether with hypoxia or hypercapnia; D68.69 Other thrombophilia; N18.3 Chronic kidney disease, stage 3 (moderate); E11.22 Type 2 diabetes mellitus with diabetic chronic kidney disease; E87.5 Hyperkalemia; I25.10 Atherosclerotic heart disease of native coronary artery without angina pectoris; I34.0 Nonrheumatic mitral (valve) insufficiency; I48.91 Unspecified atrial fibrillation; I44.7 Left bundle-branch block, unspecified; I50.9 Heart failure, unspecified; Z66 Do not resuscitate; Z78.1 Physical restraint status; Z79.01 Long term (current) use of anticoagulants; Z85.118 Personal history of other malignant neoplasm of bronchus and lung; Z87.442 Personal history of urinary calculi; Z87.891 Personal history of nicotine dependence; Z92.3 Personal history of irradiation; Z95.0 Presence of cardiac pacemaker; Z88.2 Allergy status to sulfonamides; Z88.0 Allergy status to penicillin; Z90.49 Acquired absence of other specified parts of digestive tract
CPT/HCPCS: 36415; 80048; 80164; 81001; 82040; 82962; 83735; 84443; 85025; 93005; 96372; J1815; J3486; J2060; J3230

== ENCOUNTER 2016-06-17 08:55 | Inpatient (IN) | payer MEDICARE, BC ==
[~2016-06-17] VITALS: Ht 172.7 cm; Wt 108.2 kg
[~2016-06-17 08:55] MED LIST changes: +QUET25TA5 PO
[2016-06-17] MEDS ORDERED: ONDANSETRON 2MG/ML, 2ML IVP PRN (10:30)
[2016-06-17] MEDS ORDERED: D5%-0.45NACL+KCL 20MEQ 1,000 ML IV SCH (10:43)
[2016-06-17] MEDS ORDERED: PLEASE ENTER HEIGHT AND WEIGHT MC SCH (11:00)
[2016-06-17 11:09] VITALS: BP 123/79
[2016-06-17] MEDS ORDERED: DEXTROSE 50%, 50ML SYRINGE IVPush PRN (11:30)
[2016-06-17] MEDS ORDERED: DEXTROSE 4 GM TAB.CHEW PO PRN (11:30)
[2016-06-17] MEDS ORDERED: GLUCAGON 1 MG IM PRN (11:30)
[2016-06-17 11:47] LABS: BLOOD UREA NITROGEN 70 mg/dL (7-18)
[2016-06-17 11:52] LABS: ASPARTATE AMINO TRANSFERASE 89 U/L (15-37)
[2016-06-17] MEDS ORDERED: DEXTROSE 5% 1,000 ML IV SCH (13:00)
[2016-06-17 13:02] LABS: IS PT STATUS REG ER OR PRE ER? NO
[2016-06-17 13:10] VITALS: BP 95/44
[2016-06-17] MEDS: HEPARIN 5,000 UNITS/ML, 1ML SQ SCH ×2 (15:12→21:34)
[2016-06-17] MEDS: SODIUM CHLORIDE FLUSH 10ML SYR IVF SCH ×2 (15:12→21:33)
[2016-06-17] MEDS: INSULIN ASPART 100 UNITS/ML, PEN SQ-INSULIN SCH ×3 (15:16→21:33)
[2016-06-17 18:28] VITALS: BP 107/58
[2016-06-17] MEDS ORDERED: FILTER 0.22 MICRON IV PRN (19:00)
[2016-06-17] MEDS ORDERED: AMIODARONE 900 MG in DEXTROSE 5% 482 ML IV PRN (19:00)
[2016-06-17 19:01] LABS: IS PT STATUS REG ER OR PRE ER? NO
[2016-06-17 19:16] LABS: BLOOD UREA NITROGEN 74 mg/dL (7-18)
[2016-06-17] MEDS ORDERED: AMIODARONE 150 MG in DEXTROSE 5% 100 ML IVPB ONE (19:30)
[2016-06-17 20:00] VITALS: BP 127/71
[2016-06-17 22:34] LABS: BLOOD UREA NITROGEN 75 mg/dL (7-18)
[2016-06-18] VITALS (8 sets, daily range): BP systolic 84–136; BP diastolic 49–82
[2016-06-18 01:28] LABS: IS PT STATUS REG ER OR PRE ER? NO
[2016-06-18] MEDS: INSULIN ASPART 100 UNITS/ML, PEN SQ-INSULIN SCH ×4 (03:33→20:46)
[2016-06-18] MEDS: SODIUM CHLORIDE FLUSH 10ML SYR IVF SCH ×2 (09:16→20:46)
[2016-06-18] MEDS: HEPARIN 5,000 UNITS/ML, 1ML SQ SCH ×2 (09:16→16:39)
[2016-06-18 09:57] LABS: ASPARTATE AMINO TRANSFERASE 60 U/L (15-37); BLOOD UREA NITROGEN 78 mg/dL (7-18)
[2016-06-18] MEDS: DEXTROSE 5% 1,000 ML IV SCH ×2 (12:35→20:46)
[2016-06-18] MEDS ORDERED: DEXTROSE 5% 1,000 ML IV SCH (13:00)
[2016-06-18 16:07] LABS: BLOOD UREA NITROGEN 75 mg/dL (7-18)
[2016-06-19] MEDS: ZIPRASIDONE 20 MG INJ IM PRN ×2 (00:11→22:49)
[2016-06-19] MEDS: HEPARIN 5,000 UNITS/ML, 1ML SQ SCH ×3 (02:56→16:33)
[2016-06-19] MEDS: INSULIN ASPART 100 UNITS/ML, PEN SQ-INSULIN SCH ×4 (03:08→22:12)
[2016-06-19 03:55] VITALS: BP 131/80
[2016-06-19] MEDS: DEXTROSE 5% 1,000 ML IV SCH ×3 (05:08→22:12)
[2016-06-19 05:43] LABS: ASPARTATE AMINO TRANSFERASE 76 U/L (15-37); BLOOD UREA NITROGEN 61 mg/dL (7-18)
[2016-06-19 06:54] VITALS: BP 121/80
[2016-06-19] MEDS: SODIUM CHLORIDE FLUSH 10ML SYR IVF SCH ×2 (09:59→22:13)
[2016-06-19 12:41] VITALS: BP 123/83
[2016-06-19] MEDS: VALPROATE SODIUM 250 MG in DEXTROSE 5% 100 ML IV SCH ×3 (14:05→22:11)
[2016-06-19 16:13] VITALS: BP 95/49
[2016-06-19 19:12] VITALS: BP 119/69
[2016-06-19 23:31] VITALS: BP 121/76
[2016-06-20] MEDS: HEPARIN 5,000 UNITS/ML, 1ML SQ SCH ×2 (02:36→12:24)
[2016-06-20] MEDS: INSULIN ASPART 100 UNITS/ML, PEN SQ-INSULIN SCH ×3 (05:35→17:05)
[2016-06-20 06:45] VITALS: BP 125/73
[2016-06-20 06:46] LABS: BLOOD UREA NITROGEN 42 mg/dL (7-18)
[2016-06-20] MEDS: DEXTROSE 5% 1,000 ML IV SCH ×2 (06:47→14:30)
[2016-06-20] MEDS ORDERED: POTASSIUM PHOSPHATE 44 MEQ in SODIUM CHLORIDE 0.9% 500 ML IV ONE (07:30)
[2016-06-20] MEDS: VALPROATE SODIUM 250 MG in DEXTROSE 5% 100 ML IV SCH ×2 (09:13→17:00)
[2016-06-20] MEDS: SODIUM CHLORIDE FLUSH 10ML SYR IVF SCH (09:13)
[2016-06-20 14:00] VITALS: BP 118/72
[2016-06-20 19:36] VITALS: BP 120/70
[2016-06-21] MEDS: VALPROATE SODIUM 250 MG in DEXTROSE 5% 100 ML IV SCH ×4 (00:10→21:38)
[2016-06-21] MEDS: DEXTROSE 5% 1,000 ML IV SCH ×3 (00:10→21:38)
[2016-06-21] MEDS: INSULIN ASPART 100 UNITS/ML, PEN SQ-INSULIN SCH ×5 (00:12→21:39)
[2016-06-21] MEDS: SODIUM CHLORIDE FLUSH 10ML SYR IVF SCH ×3 (00:12→21:37)
[2016-06-21] MEDS: HEPARIN 5,000 UNITS/ML, 1ML SQ SCH ×4 (00:13→21:37)
[2016-06-21 01:40] VITALS: BP 125/80
[2016-06-21 05:32] LABS: BLOOD UREA NITROGEN 29 mg/dL (7-18)
[2016-06-21 08:02] VITALS: BP 116/73
[2016-06-21] MEDS ORDERED: POTASSIUM CHLORIDE 40 MEQ in SODIUM CHLORIDE 0.9% 500 ML IV ONE (08:30)
[2016-06-21 13:58] VITALS: BP 131/84
[2016-06-21 21:19] VITALS: BP 116/71
[2016-06-22 02:26] VITALS: BP 111/66
[2016-06-22] MEDS: INSULIN ASPART 100 UNITS/ML, PEN SQ-INSULIN SCH ×4 (03:36→21:13)
[2016-06-22 04:56] LABS: BLOOD UREA NITROGEN 28 mg/dL (7-18)
[2016-06-22] MEDS: ZIPRASIDONE 20 MG INJ IM PRN ×2 (05:23→12:37)
[2016-06-22] MEDS: HEPARIN 5,000 UNITS/ML, 1ML SQ SCH ×3 (05:34→21:12)
[2016-06-22] MEDS: DEXTROSE 5% 1,000 ML IV SCH ×2 (05:35→13:00)
[2016-06-22 06:45] VITALS: BP 128/82
[2016-06-22] MEDS: VALPROATE SODIUM 250 MG in DEXTROSE 5% 100 ML IV SCH ×3 (09:08→21:12)
[2016-06-22] MEDS: SODIUM CHLORIDE FLUSH 10ML SYR IVF SCH ×2 (09:09→21:14)
[2016-06-22 15:20] VITALS: BP 129/78
[2016-06-22] MEDS: D5%-0.45% NACL 1,000 ML IV SCH (18:11)
[2016-06-22 18:27] VITALS: BP 119/69
[2016-06-23] MEDS: ZIPRASIDONE 20 MG INJ IM PRN ×2 (00:51→23:30)
[2016-06-23 02:17] VITALS: BP 158/89
[2016-06-23] MEDS: INSULIN ASPART 100 UNITS/ML, PEN SQ-INSULIN SCH ×4 (03:34→23:30)
[2016-06-23] MEDS: D5%-0.45% NACL 1,000 ML IV SCH ×3 (03:35→22:14)
[2016-06-23] MEDS: HEPARIN 5,000 UNITS/ML, 1ML SQ SCH ×3 (06:35→23:30)
[2016-06-23 07:35] VITALS: BP 156/85
[2016-06-23] MEDS: SODIUM CHLORIDE FLUSH 10ML SYR IVF SCH ×2 (09:51→23:30)
[2016-06-23] MEDS: VALPROATE SODIUM 250 MG in DEXTROSE 5% 100 ML IV SCH (10:05)
[2016-06-23 14:58] VITALS: BP 121/74
[2016-06-23 20:01] VITALS: BP 118/66
[2016-06-23] MEDS: VALPROATE SODIUM 500 MG in DEXTROSE 5% 100 ML IV SCH (22:14)
[2016-06-24 00:52] VITALS: BP 154/88
[2016-06-24] MEDS: INSULIN ASPART 100 UNITS/ML, PEN SQ-INSULIN SCH ×5 (04:39→20:21)
[2016-06-24] MEDS: D5%-0.45% NACL 1,000 ML IV SCH ×3 (05:30→17:40)
[2016-06-24 07:49] VITALS: BP 178/83
[2016-06-24] MEDS: HEPARIN 5,000 UNITS/ML, 1ML SQ SCH ×2 (08:10→17:40)
[2016-06-24] MEDS: ZIPRASIDONE 20 MG INJ IM PRN (08:10)
[2016-06-24] MEDS: SODIUM CHLORIDE FLUSH 10ML SYR IVF SCH ×2 (08:10→20:21)
[2016-06-24] MEDS: VALPROATE SODIUM 500 MG in DEXTROSE 5% 100 ML IV SCH ×3 (09:09→20:20)
[2016-06-24 09:32] VITALS: BP 135/89
[2016-06-24 12:30] VITALS: BP 129/89
[2016-06-24 17:20] LABS: PATH.CAST-FLAG NOT PRESENT; SPERM-FLAG NOT PRESENT; SRC-FLAG NOT PRESENT; XTAL-FLAG NOT PRESENT; YLC-FLAG NOT PRESENT
[2016-06-24 20:17] VITALS: BP 123/78
[2016-06-25] MEDS: HEPARIN 5,000 UNITS/ML, 1ML SQ SCH ×3 (00:44→15:21)
[2016-06-25] MEDS: ZIPRASIDONE 20 MG INJ IM PRN (01:51)
[2016-06-25 03:43] VITALS: BP 165/89
[2016-06-25] MEDS: D5%-0.45% NACL 1,000 ML IV SCH ×3 (04:57→21:13)
[2016-06-25 07:49] VITALS: BP 146/85
[2016-06-25] MEDS: SODIUM CHLORIDE FLUSH 10ML SYR IVF SCH ×2 (07:50→21:13)
[2016-06-25] MEDS: INSULIN ASPART 100 UNITS/ML, PEN SQ-INSULIN SCH ×4 (07:56→21:14)
[2016-06-25] MEDS: VALPROATE SODIUM 500 MG in DEXTROSE 5% 100 ML IV SCH ×3 (09:28→21:12)
[2016-06-25] MEDS: ERGOCALCIFEROL 50,000 UNIT CAPSULE PO SCH (10:44)
[2016-06-25] MEDS: QUETIAPINE 25MG TABLET PO SCH ×4 (10:44→21:13)
[2016-06-25 13:00] VITALS: BP 160/83
[2016-06-25 18:35] VITALS: BP 123/80
[2016-06-26] MEDS: HEPARIN 5,000 UNITS/ML, 1ML SQ SCH ×3 (00:47→16:18)
[2016-06-26 02:00] VITALS: BP 145/83
[2016-06-26] MEDS: D5%-0.45% NACL 1,000 ML IV SCH ×2 (05:48→14:10)
[2016-06-26 07:32] VITALS: BP 135/50
[2016-06-26] MEDS: QUETIAPINE 25MG TABLET PO SCH ×3 (09:34→21:14)
[2016-06-26] MEDS: VALPROATE SODIUM 500 MG in DEXTROSE 5% 100 ML IV SCH ×3 (09:34→21:14)
[2016-06-26] MEDS: INSULIN ASPART 100 UNITS/ML, PEN SQ-INSULIN SCH ×4 (09:34→21:15)
[2016-06-26] MEDS: SODIUM CHLORIDE FLUSH 10ML SYR IVF SCH ×2 (09:34→21:15)
[2016-06-26 15:57] VITALS: BP 152/57
[2016-06-26] MEDS: ZIPRASIDONE 20 MG INJ IM PRN ×2 (16:19→21:16)
[2016-06-26 20:00] VITALS: BP 155/83
[2016-06-27] MEDS: HEPARIN 5,000 UNITS/ML, 1ML SQ SCH ×3 (00:02→16:39)
[2016-06-27] MEDS: D5%-0.45% NACL 1,000 ML IV SCH ×2 (00:02→07:57)
[2016-06-27 02:00] VITALS: BP 165/89
[2016-06-27 05:02] LABS: BLOOD UREA NITROGEN 8 mg/dL (7-18)
[2016-06-27] MEDS: INSULIN ASPART 100 UNITS/ML, PEN SQ-INSULIN SCH ×4 (07:59→21:00)
[2016-06-27 08:43] VITALS: BP 163/73
[2016-06-27] MEDS: VALPROATE SODIUM 500 MG in DEXTROSE 5% 100 ML IV SCH ×3 (09:32→22:11)
[2016-06-27] MEDS: LISINOPRIL 10 MG TABLET PO SCH ×2 (09:32→22:11)
[2016-06-27] MEDS: SODIUM CHLORIDE FLUSH 10ML SYR IVF SCH ×2 (09:32→22:10)
[2016-06-27] MEDS: QUETIAPINE 25MG TABLET PO SCH ×3 (09:32→22:10)
[2016-06-27] MEDS ORDERED: POTASSIUM CHLORIDE 20 MEQ TAB.ER.PRT PO SCH (12:00)
[2016-06-27 15:51] VITALS: BP 135/81
[2016-06-27] MEDS: POTASSIUM CHLORIDE 20 MEQ PACKET PO SCH (16:39)
[2016-06-27] MEDS ORDERED: MAGNESIUM SULFATE PMX 4GM/100M 100 ML IV ONE (18:00)
[2016-06-27 20:00] VITALS: BP 161/90
[2016-06-28 02:00] VITALS: BP 172/80
[2016-06-28 05:20] LABS: BLOOD UREA NITROGEN 8 mg/dL (7-18)
[2016-06-28] MEDS: INSULIN ASPART 100 UNITS/ML, PEN SQ-INSULIN SCH ×4 (07:00→21:00)
[2016-06-28 07:25] VITALS: BP 150/82
[2016-06-28] MEDS: VALPROATE SODIUM 500 MG in DEXTROSE 5% 100 ML IV SCH ×3 (09:14→21:14)
[2016-06-28] MEDS: POTASSIUM CHLORIDE 20 MEQ PACKET PO SCH ×2 (09:15→12:00)
[2016-06-28] MEDS: SODIUM CHLORIDE FLUSH 10ML SYR IVF SCH ×2 (09:15→21:14)
[2016-06-28] MEDS: HEPARIN 5,000 UNITS/ML, 1ML SQ SCH ×3 (09:15→16:55)
[2016-06-28] MEDS: QUETIAPINE 25MG TABLET PO SCH ×3 (09:15→21:15)
[2016-06-28] MEDS: LISINOPRIL 10 MG TABLET PO SCH ×2 (09:15→21:14)
[2016-06-28 12:00] VITALS: BP 153/91
[2016-06-28 20:26] VITALS: BP 144/86
[2016-06-29] MEDS: HEPARIN 5,000 UNITS/ML, 1ML SQ SCH ×3 (00:28→16:51)
[2016-06-29 02:24] VITALS: BP 169/60
[2016-06-29 03:53] LABS: ASPARTATE AMINO TRANSFERASE 33 U/L (15-37); BLOOD UREA NITROGEN 11 mg/dL (7-18)
[2016-06-29] MEDS: INSULIN ASPART 100 UNITS/ML, PEN SQ-INSULIN SCH ×4 (07:00→21:00)
[2016-06-29] MEDS: ZIPRASIDONE 20 MG INJ IM PRN ×2 (07:54→16:26)
[2016-06-29 08:02] VITALS: BP 156/106
[2016-06-29 08:25] VITALS: BP 145/87
[2016-06-29] MEDS: LISINOPRIL 10 MG TABLET PO SCH ×3 (09:00→21:15)
[2016-06-29] MEDS: SODIUM CHLORIDE FLUSH 10ML SYR IVF SCH ×2 (09:00→21:14)
[2016-06-29] MEDS: QUETIAPINE 25MG TABLET PO SCH ×3 (09:00→21:15)
[2016-06-29] MEDS: VALPROATE SODIUM 500 MG in DEXTROSE 5% 100 ML IV SCH ×3 (10:18→21:14)
[2016-06-29 14:25] VITALS: BP 141/87
[2016-06-29 18:25] VITALS: BP 146/78
[2016-06-30 00:34] VITALS: BP 169/95
[2016-06-30] MEDS: HEPARIN 5,000 UNITS/ML, 1ML SQ SCH ×3 (00:50→16:37)
[2016-06-30] MEDS ORDERED: hydrALAzine 20 MG/ML, 1ML IV PRN (01:00)
[2016-06-30 01:15] VITALS: BP 174/94
[2016-06-30 01:55] VITALS: BP 161/97
[2016-06-30 03:38] LABS: BLOOD UREA NITROGEN 12 mg/dL (7-18)
[2016-06-30] MEDS: INSULIN ASPART 100 UNITS/ML, PEN SQ-INSULIN SCH ×4 (07:00→21:00)
[2016-06-30] MEDS: ZIPRASIDONE 20 MG INJ IM PRN (07:52)
[2016-06-30] MEDS: QUETIAPINE 25MG TABLET PO SCH ×3 (09:38→21:16)
[2016-06-30] MEDS: SODIUM CHLORIDE FLUSH 10ML SYR IVF SCH ×2 (09:38→21:15)
[2016-06-30] MEDS: LISINOPRIL 10 MG TABLET PO SCH ×2 (09:38→21:16)
[2016-06-30] MEDS: VALPROATE SODIUM 500 MG in DEXTROSE 5% 100 ML IV SCH (10:25)
[2016-06-30] MEDS ORDERED: DIVALPROEX 500 MG TAB.ER.24H PO SCH (16:00)
[2016-06-30 19:22] VITALS: BP 170/85
[2016-06-30] MEDS: DIVALPROEX 125 MG CAP.SPRINK PO SCH (21:16)
[2016-06-30 23:20] VITALS: BP 147/83
[2016-07-01] MEDS: HEPARIN 5,000 UNITS/ML, 1ML SQ SCH ×3 (00:14→17:09)
[2016-07-01 00:54] VITALS: BP 154/87
[2016-07-01] MEDS: INSULIN ASPART 100 UNITS/ML, PEN SQ-INSULIN SCH ×4 (07:00→20:58)
[2016-07-01 07:24] VITALS: BP 155/79
[2016-07-01] MEDS: QUETIAPINE 25MG TABLET PO SCH ×3 (09:21→21:08)
[2016-07-01] MEDS: DIVALPROEX 125 MG CAP.SPRINK PO SCH ×3 (09:21→21:08)
[2016-07-01] MEDS: LISINOPRIL 10 MG TABLET PO SCH ×2 (09:21→21:06)
[2016-07-01] MEDS: SODIUM CHLORIDE FLUSH 10ML SYR IVF SCH ×2 (09:22→21:06)
[2016-07-01 13:30] VITALS: BP 169/90
[2016-07-01] MEDS: ZIPRASIDONE 20 MG INJ IM PRN (14:19)
[2016-07-01 20:00] VITALS: BP 147/85
[2016-07-02] MEDS: HEPARIN 5,000 UNITS/ML, 1ML SQ SCH ×3 (00:55→16:17)
[2016-07-02 02:34] VITALS: BP 144/84
[2016-07-02] MEDS: INSULIN ASPART 100 UNITS/ML, PEN SQ-INSULIN SCH ×4 (07:00→20:37)
[2016-07-02] MEDS: SODIUM CHLORIDE FLUSH 10ML SYR IVF SCH ×2 (09:00→20:36)
[2016-07-02 10:32] VITALS: BP 156/93
[2016-07-02] MEDS: QUETIAPINE 25MG TABLET PO SCH ×3 (10:41→20:37)
[2016-07-02] MEDS: LISINOPRIL 10 MG TABLET PO SCH ×2 (10:41→20:37)
[2016-07-02] MEDS: DIVALPROEX 125 MG CAP.SPRINK PO SCH ×3 (10:42→20:37)
[2016-07-02] MEDS: ERGOCALCIFEROL 50,000 UNIT CAPSULE PO SCH (10:42)
[2016-07-02 14:00] VITALS: BP 138/73
[2016-07-02 20:00] VITALS: BP 144/71
[2016-07-03] MEDS: HEPARIN 5,000 UNITS/ML, 1ML SQ SCH ×4 (00:18→20:49)
[2016-07-03 02:00] VITALS: BP 151/77
[2016-07-03] MEDS: INSULIN ASPART 100 UNITS/ML, PEN SQ-INSULIN SCH ×4 (07:00→20:49)
[2016-07-03 07:55] VITALS: BP 150/92
[2016-07-03] MEDS: LISINOPRIL 10 MG TABLET PO SCH ×2 (10:38→20:50)
[2016-07-03] MEDS: DIVALPROEX 125 MG CAP.SPRINK PO SCH ×3 (10:38→20:50)
[2016-07-03] MEDS: QUETIAPINE 25MG TABLET PO SCH ×3 (10:38→20:50)
[2016-07-03] MEDS: SODIUM CHLORIDE FLUSH 10ML SYR IVF SCH ×2 (10:38→20:49)
[2016-07-03 12:50] VITALS: BP 150/87
[2016-07-03 19:03] VITALS: BP 116/72
[2016-07-04 02:24] VITALS: BP 127/71
[2016-07-04] MEDS: HEPARIN 5,000 UNITS/ML, 1ML SQ SCH ×3 (06:05→21:07)
[2016-07-04] MEDS: INSULIN ASPART 100 UNITS/ML, PEN SQ-INSULIN SCH ×4 (07:00→21:00)
[2016-07-04 08:06] VITALS: BP 149/80
[2016-07-04] MEDS: QUETIAPINE 25MG TABLET PO SCH ×3 (08:16→21:05)
[2016-07-04] MEDS: LISINOPRIL 10 MG TABLET PO SCH ×2 (08:16→21:05)
[2016-07-04] MEDS: DIVALPROEX 125 MG CAP.SPRINK PO SCH ×3 (08:17→21:05)
[2016-07-04] MEDS: SODIUM CHLORIDE FLUSH 10ML SYR IVF SCH ×2 (08:17→21:04)
[2016-07-04 13:26] VITALS: BP 147/74
[2016-07-04 19:28] VITALS: BP 147/85
[2016-07-05 00:29] VITALS: BP 134/86
[2016-07-05] MEDS: HEPARIN 5,000 UNITS/ML, 1ML SQ SCH ×3 (06:06→22:06)
[2016-07-05] MEDS: INSULIN ASPART 100 UNITS/ML, PEN SQ-INSULIN SCH ×4 (07:00→21:52)
[2016-07-05 07:39] VITALS: BP 153/77
[2016-07-05] MEDS: QUETIAPINE 25MG TABLET PO SCH ×3 (08:46→22:28)
[2016-07-05] MEDS: DIVALPROEX 125 MG CAP.SPRINK PO SCH ×3 (08:46→22:28)
[2016-07-05] MEDS: SODIUM CHLORIDE FLUSH 10ML SYR IVF SCH ×2 (08:46→22:06)
[2016-07-05] MEDS: LISINOPRIL 10 MG TABLET PO SCH ×2 (08:46→22:28)
[2016-07-05 12:47] VITALS: BP 145/94
[2016-07-05 23:52] VITALS: BP 121/72
[2016-07-06 01:51] VITALS: BP 151/82
[2016-07-06 04:56] LABS: BLOOD UREA NITROGEN 14 mg/dL (7-18)
[2016-07-06 04:59] LABS: ASPARTATE AMINO TRANSFERASE 39 U/L (15-37)
[2016-07-06] MEDS: HEPARIN 5,000 UNITS/ML, 1ML SQ SCH ×3 (06:05→22:08)
[2016-07-06 06:41] VITALS: BP 152/79
[2016-07-06] MEDS: INSULIN ASPART 100 UNITS/ML, PEN SQ-INSULIN SCH ×4 (07:00→21:00)
[2016-07-06] MEDS: QUETIAPINE 25MG TABLET PO SCH ×3 (09:07→21:55)
[2016-07-06] MEDS: SODIUM CHLORIDE FLUSH 10ML SYR IVF SCH ×2 (09:08→21:56)
[2016-07-06] MEDS: LISINOPRIL 10 MG TABLET PO SCH ×2 (09:08→21:55)
[2016-07-06] MEDS: DIVALPROEX 125 MG CAP.SPRINK PO SCH ×3 (09:08→21:55)
[2016-07-06] MEDS: D5%-0.2% NACL 500 ML IV SCH ×3 (09:30→19:49)
[2016-07-06 12:16] VITALS: BP 153/85
[2016-07-06 18:29] VITALS: BP 137/73
[2016-07-07 01:22] VITALS: BP 129/83
[2016-07-07] MEDS: HEPARIN 5,000 UNITS/ML, 1ML SQ SCH ×3 (06:00→21:26)
[2016-07-07 06:33] VITALS: BP 128/80
[2016-07-07] MEDS: INSULIN ASPART 100 UNITS/ML, PEN SQ-INSULIN SCH ×4 (07:00→21:00)
[2016-07-07] MEDS: SODIUM CHLORIDE FLUSH 10ML SYR IVF SCH ×2 (07:57→21:00)
[2016-07-07] MEDS: DIVALPROEX 125 MG CAP.SPRINK PO SCH ×3 (07:57→21:25)
[2016-07-07] MEDS: LISINOPRIL 10 MG TABLET PO SCH ×2 (07:57→21:26)
[2016-07-07] MEDS: QUETIAPINE 25MG TABLET PO SCH ×3 (07:57→21:26)
[2016-07-07 12:55] VITALS: BP 120/77
[2016-07-07 18:22] VITALS: BP 112/58
[2016-07-08 00:55] VITALS: BP 127/63
[2016-07-08] MEDS: HEPARIN 5,000 UNITS/ML, 1ML SQ SCH (06:03)
[2016-07-08 06:45] VITALS: BP 118/64
[2016-07-08] MEDS: QUETIAPINE 25MG TABLET PO SCH ×2 (08:00→10:23)
[2016-07-08] MEDS: INSULIN ASPART 100 UNITS/ML, PEN SQ-INSULIN SCH (08:00)
[2016-07-08] MEDS: SODIUM CHLORIDE FLUSH 10ML SYR IVF SCH (09:00)
[2016-07-08 10:13] LABS: BLOOD UREA NITROGEN 15 mg/dL (7-18)
[2016-07-08] MEDS: DIVALPROEX 125 MG CAP.SPRINK PO SCH (10:22)
[2016-07-08] MEDS: LISINOPRIL 10 MG TABLET PO SCH (10:23)
[2016-07-08] MEDS ORDERED: QUET50TA PO (16:51)
[2016-07-08] MEDS ORDERED: DIVA250T4 PO (16:51)
[2016-07-08] MEDS ORDERED: [UNRECOGNIZED DRUG - CODE] SL (16:51)
[2016-07-08] MEDS ORDERED: HALO5AMP3 SL (16:51)
== END 2016-07-08 11:35 | disposition expired | DRG 91 ==
LOC: 3NW 08:55 → UNDOADMIN 09:01 → 4WST 11:55 → 4EST 07-03 06:36
PROVIDERS: ADMIT Internal Medicine; ATTEND Internal Medicine
PROC: 02HV33Z Insertion of Infusion Device into Superior Vena Cava, Percutaneous Approach (ICD-10-PCS; principal; 2016-06-19)
PROC: B5181ZA Fluoroscopy of Superior Vena Cava using Low Osmolar Contrast, Guidance (ICD-10-PCS; 2016-06-19)
PROC: B548ZZA Ultrasonography of Superior Vena Cava, Guidance (ICD-10-PCS; 2016-06-19)
DX: G92 Toxic encephalopathy (principal); E43 Unspecified severe protein-calorie malnutrition; I13.0 Hypertensive heart and chronic kidney disease with heart failure and stage 1 through stage 4 chronic kidney disease, or unspecified chronic kidney disease; J96.10 Chronic respiratory failure, unspecified whether with hypoxia or hypercapnia; F01.51 Vascular dementia, unspecified severity, with behavioral disturbance; D68.69 Other thrombophilia; E87.0 Hyperosmolality and hypernatremia; I50.22 Chronic systolic (congestive) heart failure; E86.0 Dehydration; I48.2 Chronic atrial fibrillation; I25.5 Ischemic cardiomyopathy; D53.9 Nutritional anemia, unspecified; I34.0 Nonrheumatic mitral (valve) insufficiency; Z95.0 Presence of cardiac pacemaker; D63.8 Anemia in other chronic diseases classified elsewhere; E11.22 Type 2 diabetes mellitus with diabetic chronic kidney disease; E11.21 Type 2 diabetes mellitus with diabetic nephropathy; E83.42 Hypomagnesemia; E87.5 Hyperkalemia; E87.6 Hypokalemia; E87.8 Other disorders of electrolyte and fluid balance, not elsewhere classified; F22 Delusional disorders; F31.9 Bipolar disorder, unspecified; F90.9 Attention-deficit hyperactivity disorder, unspecified type; I25.10 Atherosclerotic heart disease of native coronary artery without angina pectoris; I44.7 Left bundle-branch block, unspecified; N18.3 Chronic kidney disease, stage 3 (moderate); Z51.5 Encounter for palliative care; Z63.8 Other specified problems related to primary support group; Z66 Do not resuscitate; Z78.1 Physical restraint status; Z79.01 Long term (current) use of anticoagulants; Z85.118 Personal history of other malignant neoplasm of bronchus and lung; Z92.3 Personal history of irradiation; Z82.49 Family history of ischemic heart disease and other diseases of the circulatory system; Z83.3 Family history of diabetes mellitus; Z88.0 Allergy status to penicillin; Z88.8 Allergy status to other drugs, medicaments and biological substances; Z88.2 Allergy status to sulfonamides; Z90.49 Acquired absence of other specified parts of digestive tract
CPT/HCPCS: 36415; 36569; 71010; 76770; 76937; 77001; 80048; 80053; 80164; 81001; 82140; 82306; 82607; 82746; 82962; 83735; 84100; 84439; 84443; 84484; 85025; 87086; 87324; 93005; J1644; J1815; J3480; J3486; J7070; C1751; J0282; J0360; J3475; J7040; J7060

== ENCOUNTER 2016-07-08 16:21 | Inpatient (IN) | payer BC, MEDICARE, OTHER ==
[~2016-07-08] VITALS: Ht 175.3 cm; Wt 110.0 kg
[2016-07-08] MEDS ORDERED: SODIUM CHLORIDE 0.9% 1,000 ML IV ONE (16:40)
[2016-07-08] MEDS ORDERED: [UNRECOGNIZED DRUG - CODE] SL (16:51)
[2016-07-08] MEDS ORDERED: QUET50TA PO (16:51)
[2016-07-08] MEDS ORDERED: DIVA250T4 PO (16:51)
[2016-07-08] MEDS ORDERED: HALO5AMP3 SL (16:51)
[2016-07-08] MEDS ORDERED: SODIUM CHLORIDE FLUSH 10ML SYR IVF ONE (17:00)
[2016-07-08 17:24] LABS: ASPARTATE AMINO TRANSFERASE 37 U/L (15-37); BLOOD UREA NITROGEN 15 mg/dL (7-18)
[2016-07-08] MEDS ORDERED: HALOPERIDOL 2 MG/ML ORAL SOL SL PRN (17:30)
[2016-07-08] MEDS ORDERED: chlorPROMAZINE 25 MG/ML, 2ML IM ONE (17:30)
[2016-07-08] MEDS ORDERED: DEXTROSE 5% 1,000 ML IV SCH (18:30)
[2016-07-08 19:20] VITALS: BP 131/69
[2016-07-08] MEDS ORDERED: PHENOBARBITAL SODIUM 65 MG/ML, 1ML IVPush SCH (21:00)
[2016-07-08] MEDS: PHENOBARBITAL SODIUM 130 MG/ML, 1ML IV SCH (21:08)
[2016-07-09] MEDS: PHENOBARBITAL SODIUM 130 MG/ML, 1ML IV SCH ×6 (00:03→14:36)
[2016-07-09] MEDS: HALOPERIDOL 2 MG/ML ORAL SOL SL SCH ×3 (09:00→14:35)
[2016-07-09] MEDS ORDERED: morphine SULFATE 10 MG/ML, 1ML ONE (15:09)
[2016-07-09] MEDS: morphine SULFATE 10 MG/ML, 1ML IVPush PRN ×2 (15:15→16:17)
[2016-07-09] MEDS ORDERED: chlorPROMAZINE 25 MG/ML, 2ML IM PRN (15:30)
[2016-07-09] MEDS ORDERED: SCOPOLAMINE PATCH, 1.5MG PATCH.TD72 TD SCH (16:00)
== END 2016-07-09 18:15 | disposition expired | DRG 884 ==
LOC: ED 16:49 → EDIP 16:53 → 3NE 19:02 → 3NW 20:16
PROVIDERS: ADMIT Internal Medicine; ATTEND Internal Medicine
DX: F03.91 Unspecified dementia, unspecified severity, with behavioral disturbance (principal); G93.41 Metabolic encephalopathy; E87.0 Hyperosmolality and hypernatremia; I13.0 Hypertensive heart and chronic kidney disease with heart failure and stage 1 through stage 4 chronic kidney disease, or unspecified chronic kidney disease; J96.10 Chronic respiratory failure, unspecified whether with hypoxia or hypercapnia; I50.22 Chronic systolic (congestive) heart failure; E11.22 Type 2 diabetes mellitus with diabetic chronic kidney disease; I25.10 Atherosclerotic heart disease of native coronary artery without angina pectoris; I48.91 Unspecified atrial fibrillation; I34.0 Nonrheumatic mitral (valve) insufficiency; I45.4 Nonspecific intraventricular block; Z66 Do not resuscitate; Z51.5 Encounter for palliative care; N18.3 Chronic kidney disease, stage 3 (moderate); Z85.118 Personal history of other malignant neoplasm of bronchus and lung; Z87.442 Personal history of urinary calculi; Z92.3 Personal history of irradiation; Z95.0 Presence of cardiac pacemaker; Z88.0 Allergy status to penicillin; Z88.1 Allergy status to other antibiotic agents; Z88.8 Allergy status to other drugs, medicaments and biological substances
CPT/HCPCS: 36415; 70450; 80053; 82607; 83605; 83735; 85025; 87040; 93005; J2560; J2270; J3230